=== PATIENT | female | born 1935 | race Caucasian/White ===

== ENCOUNTER 2019-05-26 15:34 | Emergency (ER) | payer OTHER ==
[~2019-05-26] VITALS: Ht 157.5 cm; Wt 69.9 kg
[2019-05-26 15:57] VITALS: Ht 157.5 cm; Wt 69.9 kg
[2019-05-26 17:07] LABS: PLATELET COUNT 223 x10^3mcL (130-400)
[2019-05-26 17:08] LABS: RED CELL DISTRIBUTION WIDTH 18.1 % (11.5-14.5)
[2019-05-26 17:21] LABS: CARBON DIOXIDE 22.7 mmol/L (21-32); CHLORIDE SERUM 102 mmol/L (98-107); CREATININE SERUM 1.2 mg/dL (0.6-1.0); GLUCOSE SERUM 108 mg/dL (74-106); POTASSIUM SERUM 3.4 mmol/L (3.5-5.1); SODIUM SERUM 140 mmol/L (136-145)
[2019-05-26 17:27] LABS: TOTAL PROTEIN, SERUM 8.7 g/dL (6.4-8.2)
[2019-05-26 17:28] LABS: ALBUMIN 3.9 g/dL (3.4-5.0); ALKALINE PHOSPHATASE 94 U/L (46-116); ALT/SGPT 14 U/L (14-59); AST/SGOT 19 U/L (15-37); CALCIUM 8.6 mg/dL (8.5-10.1)
[2019-05-26 18:26] VITALS: BP 151/87
== END 2019-05-26 18:26 | disposition home or self-care (01) ==
LOC: ED 15:34
PROVIDERS: Emergency Medicine
DX: D50.9 Iron deficiency anemia, unspecified (principal); I10 Essential (primary) hypertension; K21.9 Gastro-esophageal reflux disease without esophagitis
CPT/HCPCS: 36415